=== PATIENT | male | born 1995 | race Caucasian/White ===

== ENCOUNTER 2016-09-11 18:58 | Emergency (ER) | payer BC, OTHER ==
[2016-09-11 22:26] LABS: RED BLOOD COUNT 5.27 M/UL (4.20-5.50); WHITE BLOOD COUNT 6.2 K/UL (4.5-11.0)
[2016-09-11 22:51] LABS: BUN/CREATININE RATIO 18 (0-10)
== END 2016-09-12 00:35 | disposition home or self-care (01) ==
LOC: ER1 18:58
PROVIDERS: Specialist/Technologist Athletic Trainer
DX: R00.2 Palpitations (principal); I10 Essential (primary) hypertension; E03.9 Hypothyroidism, unspecified; Z88.0 Allergy status to penicillin; Z88.1 Allergy status to other antibiotic agents; Z88.5 Allergy status to narcotic agent; Z88.6 Allergy status to analgesic agent; Z88.8 Allergy status to other drugs, medicaments and biological substances; R42 Dizziness and giddiness
CPT/HCPCS: 36415; 71010; 80053; 82550; 82553; 83874; 84439; 84443; 84484; 85025; 85379; 93005; 99285